=== PATIENT | female | born 1980 | race Caucasian/White ===

== ENCOUNTER 2017-04-07 19:32 | Emergency (ER) | payer BC, OTHER ==
[2017-04-07 20:48] VITALS: BP 132/74
[2017-04-07] MEDS ORDERED: Fluorescein Sodium TOPICAL* 1 MG TEST OPHTHALMIC ONE (20:58)
[2017-04-07] MEDS ORDERED: Erythromycin OPTH OINT* APPLIC OINT LEFT EYE ONE (21:08)
--- NOTE | 2017-04-07 21:08 | UC ---
Eye Complaint HPI - HPI Summary HPI Summary: 36 yo female was poked in her left eye today by son c/o lower lid pain no photophobia - History of Current Complaint Chief Complaint: UCEye Stated Complaint: LFT EYE INJURY-BLURRY/PAINFUL Time Seen by Provider: 04/07/17 20:58 Hx Obtained From: Patient Hx Last Menstrual Period: 03/07/17 Onset/Duration: Sudden Onset Timing: Constant Severity Initially: Moderate Severity Currently: Mild Pain Intensity: 3 Pain Scale Used: 0-10 Numeric Location of Injury: Eye Lid (lower) Character: Sharp Aggravating Factor(s): Nothing Alleviating Factor(s): Nothing - Risk Factors Penetrating Injury Risk Factor: Negative Globe Rupture Risk Factors: Negative Acute Glaucoma Risk Factors: Negative Optic Artery Occlusion Risk Factors: Negative - Allergies/Home Medications Allergies/Adverse Reactions: Allergies Allergy/AdvReac Type Severity Reaction Status Date / Time No Known Allergies Allergy Verified 04/07/17 20:48 Home Medications: Home Medications NK [No Home Medications Reported] 04/07/17 [History Confirmed 04/07/17] PMH/Surg Hx/FS Hx/Imm Hx Previously Healthy: Yes - Surgical History Surgical History: Yes Surgery Procedure, Year, and Place: tonsils at age 8 yrs, c section x2 (2011, 2015) - Family History Known Family History: Positive: Diabetes - mother, Other - glaucoma (dad) Negative: Cardiac Disease, Hypertension - Social History Alcohol Use: Occasionally Substance Use Type: None Smoking Status (MU): Former Smoker Type: Cigarettes Amount Used/How Often: 1/2 ppd Have You Smoked in the Last Year: No When Did the Patient Quit Smoking/Using Tobacco: 2009 Review of Systems Constitutional: Negative Skin: Negative Eyes: Eye Redness ENT: Negative Respiratory: Negative Cardiovascular: Negative Gastrointestinal: Negative Genitourinary: Negative Motor: Negative Neurovascular: Negative Musculoskeletal: Negative Neurological: Negative Psychological: Negative All Other Systems Reviewed And Are Negative: Yes Physical Exam Triage Information Reviewed: Yes Appearance: Well-Appearing, No Pain Distress, Well-Nourished Vital Signs: Initial Vital Signs Temp 99 F 04/07/17 20:38 Pulse 68 04/07/17 20:38 Resp 16 04/07/17 20:38 BP 132/74 04/07/17 20:38 Pulse Ox 100 04/07/17 20:38 Vital Signs Reviewed: Yes Eyes: Positive: Conjunctiva Inflamed, Other: - eomi/perrla, neg corneal abrasion by flourescein, scracth of palpebral conjunctiva left lower lid ENT: Positive: Hearing grossly normal. Negative: Nasal congestion, Nasal drainage, Trismus, Muffled/hoarse voice Neck: Positive: Supple, Nontender Respiratory: Positive: Lungs clear, Normal breath sounds, No respiratory distress, No accessory muscle use Cardiovascular: Positive: RRR, No Murmur Musculoskeletal: Positive: ROM Intact, No Edema Neurological: Positive: Alert Psychological Exam: Normal Skin Exam: Normal Eye Complaint Course/Dx - Differential Dx/Diagnosis Provider Diagnoses: abrasion of left lower lid palpebral conjunctiva Discharge - Discharge Plan Condition: Stable Disposition: HOME Referrals: Sandi Malagon [Primary Care Provider] - 2 Days Additional Instructions: you have a scratch to the lower eye lid (inner surface) apply antibiotic ointment as directed red for increased pain/swelling/discharge recheck in 3-4 days if not better
== END 2017-04-07 21:32 | disposition home or self-care (01) ==
LOC: UCCORT 19:32
DX: S00.212A Abrasion of left eyelid and periocular area, initial encounter (principal); W22.8XXA Striking against or struck by other objects, initial encounter; Y93.9 Activity, unspecified; Y92.9 Unspecified place or not applicable; Z87.891 Personal history of nicotine dependence
CPT/HCPCS: 99212; A9270-GY; G0463

== ENCOUNTER 2018-01-23 09:10 | Emergency (ER) | payer BC ==
[2018-01-23 09:40] VITALS: BP 143/66
--- NOTE | 2018-01-23 10:14 | UC ---
Respiratory Complaint HPI - HPI Summary HPI Summary: Pt c/o worsening productive cough, nasal congestion, nasal congestion X 1 week. Pt also has c/o left eye redness and discharge X 1 day. - History of Current Complaint Chief Complaint: UCRespiratory Stated Complaint: RESPIRATORY, LEFT EYE COMPLAINT Time Seen by Provider: 01/23/18 09:51 Hx Obtained From: Patient Hx Last Menstrual Period: 01/08/18 ?: No Onset/Duration: Gradual Onset, Lasting Days, Still Present, Worse Since - onset Timing: Constant Severity Initially: Mild Severity Currently: Moderate Pain Intensity: 0 Character: Cough: Productive, Sputum Description: - yellow brown Aggravating Factors: Exertion, Deep Breaths, Recumbent Position Alleviating Factors: Nothing Associated Signs And Symptoms: Positive: URI, Nasal Congestion - Risk Factors Pulmonary Embolism Risk Factors: Negative Cardiac Risk Factors: Negative Pseudomonas Risk Factors: Negative Tuberculosis Risk Factors: Negative - Allergies/Home Medications Allergies/Adverse Reactions: Allergies Allergy/AdvReac Type Severity Reaction Status Date / Time No Known Allergies Allergy Verified 01/23/18 09:31 Home Medications: Home Medications Naproxen TAB* [Naprosyn 375 mg TAB*] 375 mg PO BID 01/23/18 [History Confirmed 01/23/18] PMH/Surg Hx/FS Hx/Imm Hx - Surgical History Surgical History: Yes Surgery Procedure, Year, and Place: tonsils at age 8 yrs, c section x2 (2011, 2015) - Family History Known Family History: Positive: Diabetes - mother, Other - glaucoma (dad) Negative: Cardiac Disease, Hypertension - Social History Occupation: Employed Full-time Lives: With Family Alcohol Use: Occasionally Substance Use Type: None Smoking Status (MU): Former Smoker Type: Cigarettes Amount Used/How Often: 1/2 ppd Have You Smoked in the Last Year: No When Did the Patient Quit Smoking/Using Tobacco: 2009 - Immunization History Most Recent Influenza Vaccination: none Review of Systems Constitutional: Chills, Fatigue Skin: Negative Eyes: Drainage, Eye Redness ENT: Sinus Congestion Respiratory: Shortness Of Breath - with exertion, Cough Cardiovascular: Negative Gastrointestinal: Negative Genitourinary: Negative Motor: Negative Neurovascular: Negative Musculoskeletal: Myalgia Neurological: Negative Psychological: Negative Is Patient Immunocompromised?: No All Other Systems Reviewed And Are Negative: Yes Physical Exam Triage Information Reviewed: Yes Appearance: Ill-Appearing Vital Signs: Initial Vital Signs Temp 98.3 F 01/23/18 09:33 Pulse 80 01/23/18 09:33 Resp 18 01/23/18 09:33 BP 143/66 01/23/18 09:33 Pulse Ox 99 01/23/18 09:33 Vital Signs Reviewed: Yes Eyes: Positive: Conjunctiva Inflamed, Discharge ENT Exam: Other ENT: Positive: Nasal congestion Dental Exam: Normal Neck exam: Normal Respiratory Exam: Normal Cardiovascular Exam: Normal Musculoskeletal Exam: Normal Neurological Exam: Normal Psychological Exam: Normal Skin Exam: Normal UC Diagnostic Evaluation - Laboratory O2 Sat by Pulse Oximetry: 99 Respiratory Course/Dx - Differential Dx/Diagnosis Differential Diagnosis/HQI/PQRI: Bronchitis, Influenza Provider Diagnoses: Bronchitis. conjunctivitis left eye Discharge - Sign-Out/Discharge Documenting (check all that apply): Discharge - Discharge Plan Condition: Stable Disposition: HOME Prescriptions: Albuterol HFA INHALER* [Ventolin HFA Inhaler*] 1 - 2 puff INH Q6H PRN #1 mdi PRN Reason: Sob/Wheezing Azithromycin TAB* [Zithromax TAB (Z-ANTOINETTE) 250 mg #6 tabs] 2 tab PO .TODAY, THEN 1 DAILY #1 antoinette Benzonatate CAP* [Tessalon 100 MG CAP*] 100 mg PO Q8H PRN #30 cap PRN Reason: Cough Chlorpheniramine/Dextromethorp [Coricidin Hbp Cough & Cold Tab] 1 each PO Q8H # 15 tablet Polymyx/Trimethoprim OPTH* [Polytrim OPHTH*] 3 drop LEFT EYE Q8H #1 btl predniSONE TAB* [Deltasone TAB*] 30 mg PO DAILY #12 tab Patient Education Materials: Acute Bronchitis (ED), Conjunctivitis (ED) Referrals: [facility] [facility] [[place]] Non Staff,Doctor [Primary Care Provider] - - Billing Disposition and Condition Condition: STABLE Disposition: HOME
== END 2018-01-23 10:13 | disposition home or self-care (01) ==
LOC: UCCORT 09:10
DX: J40 Bronchitis, not specified as acute or chronic (principal); H10.9 Unspecified conjunctivitis; Z87.891 Personal history of nicotine dependence
CPT/HCPCS: 99212; G0463

== ENCOUNTER 2018-08-19 10:09 | Emergency (ER) | payer BC ==
[2018-08-19 12:33] VITALS: BP 143/72
--- NOTE | 2018-08-19 12:41 | UC ---
UC General HPI - HPI Summary HPI Summary: PT C/O PAIN TO THE OUTSIDE OF HER R FOOT FOR A FEW MONTHS. NOW HAS PAIN TO THE FRONT OF HER ANKLE AND INNER FOOT WELL BUT THINKS FROM WALKING FUNNY TO FAVOR THE FOOT. NO ACUTE INJURY BUT REMOTE HX OF SEVERAL SPRAINS. - History of Current Complaint Stated Complaint: RT FOOT INJURY Time Seen by Provider: 08/19/18 12:27 Hx Obtained From: Patient Hx Last Menstrual Period: 07/25/18 Onset/Duration: Gradual Onset Timing: Constant Pain Intensity: 8 Associated Signs & Symptoms: Negative: Fever - Allergy/Home Medications Allergies/Adverse Reactions: Allergies Allergy/AdvReac Type Severity Reaction Status Date / Time No Known Allergies Allergy Verified 08/19/18 12:24 PMH/Surg Hx/FS Hx/Imm Hx Previously Healthy: Yes - Surgical History Surgical History: Yes Surgery Procedure, Year, and Place: tonsils at age 8 yrs, c section x2 (2011, 2015) - Family History Known Family History: Positive: Diabetes - mother, Other - glaucoma (dad) Negative: Cardiac Disease, Hypertension - Social History Occupation: Employed Full-time Alcohol Use: Occasionally Substance Use Type: None Smoking Status (MU): Former Smoker Type: Cigarettes Amount Used/How Often: 1/2 ppd Have You Smoked in the Last Year: No When Did the Patient Quit Smoking/Using Tobacco: 2009 - Immunization History Most Recent Influenza Vaccination: none Vaccination Up to Date: Yes Review of Systems Constitutional: Negative Skin: Negative Eyes: Negative ENT: Negative Respiratory: Negative Cardiovascular: Negative Gastrointestinal: Negative Genitourinary: Negative Motor: Negative Neurovascular: Negative Musculoskeletal: Other: - R FOOT PAIN/SWELLING Neurological: Negative Psychological: Negative Is Patient Immunocompromised?: No All Other Systems Reviewed And Are Negative: Yes Physical Exam Triage Information Reviewed: Yes Appearance: Well-Appearing Vital Signs: Initial Vital Signs Temp 98.2 F 08/19/18 12:25 Pulse 69 08/19/18 12:25 Resp 18 08/19/18 12:25 BP 143/72 08/19/18 12:25 Pulse Ox 97 08/19/18 12:25 Vital Signs Reviewed: Yes Eyes: Positive: Conjunctiva Clear ENT: Positive: Normal ENT inspection Neck: Positive: Supple, Nontender, No Lymphadenopathy Respiratory: Positive: Lungs clear, Normal breath sounds Cardiovascular: Positive: RRR, No Murmur Abdomen Description: Positive: Nontender, No Organomegaly, Soft Bowel Sounds: Positive: Present Musculoskeletal: Positive: Other: - RLE: HIP, KNEE, ACHILLES AND ANKLE ARE NON TENDER. R FOOT COMPARED TO LEFT HAS MILD SWELLING BUT NO ERYTHEMA OR WARMTH. FOOT IS TENDER OVER PROXIMAL 5TH METATARSAL, ANTERIOR ANKLE AND MEDIAL FOOT. FOOT HAS FULL S/V/M FUNCTION. Neurological: Positive: Alert Psychological: Positive: Age Appropriate Behavior Skin Exam: Normal Diagnostics - Radiology No standard instances Radiology Interpretation Completed By: Radiologist - R foot. Mild osteoarthritis. Course/Dx - Course Course Of Treatment: no fx on xray. no concern for infection. oa on xray - Differential Dx - Multi-Symptom Provider Diagnoses: R foot pain. OA R foot Discharge - Sign-Out/Discharge Documenting (check all that apply): Patient Departure All imaging exams completed and their final reports reviewed: Yes - Discharge Plan Condition: Stable Disposition: HOME Prescriptions: Naproxen [Naprosyn 500 mg tab] 500 mg PO BID 5 Days #10 tablet Patient Education Materials: Osteoarthritis (DC) Forms: *Work Release Referrals: Larry Alston MD [Medical Doctor] - 5 Days Additional Instructions: wear splint/regina during day, removed for bed - Billing Disposition and Condition Condition: STABLE Disposition: Home
--- NOTE | 2018-08-19 13:08 | RAD ---
Indication: Lateral RIGHT foot pain without proceeding injury. Comparison: No relevant prior exams available on the [facility] [facility] for comparison. Technique: AP, lateral, and oblique views RIGHT foot. Report: Normal articular alignment. Mild osteophytosis at the first metatarsal phalangeal joint with mild associated joint space narrowing. Mild osteoarthritis also evident at the transverse tarsal joint and navicular cuneiform articulations. Os tibiale externum accessory ossicle and os peroneum accessory ossicle noted. Negative for fracture or stress reaction. Unremarkable soft tissue contours. IMPRESSION: #. Mild osteoarthritis.
== END 2018-08-19 13:36 | disposition home or self-care (01) ==
LOC: UCCORT 10:09
DX: M19.071 Primary osteoarthritis, right ankle and foot (principal); Z87.891 Personal history of nicotine dependence
CPT/HCPCS: 99213; G0463